=== PATIENT | female | born 1955 | race African-American/Black ===

== ENCOUNTER 2021-10-07 08:07 | Day surgery (SDC) | payer OTHER ==
[2021-10-06 11:40] LABS: Absolute Lymphocytes (CBC) 2.3 K/uL (0.7-4.9); Hematocrit 35.6 % (36.0-45.0); Lymphocytes % 42.6 % (15.3-44.8)
--- NOTE | 2021-10-06 11:44 | RAD REPORT ---
EXAM DESCRIPTION: RAD - Chest Pa And Lat (2 Views) - 10/06/2021 11:15 am CLINICAL HISTORY: Pre Op, pending right breast surgery COMPARISON: April 2018 TECHNIQUE: Frontal and lateral views of the chest were obtained. FINDINGS: The lungs are clear. Interstitial pattern matches comparison. No mass or lymphadenopathy at either hilar region. Heart size is normal and central vasculature is within normal limits. No ple ural effusion or pneumothorax seen. No acute bony finding noted. No aortic abnormality. IMPRESSION: No acute cardiopulmonary process. No significant change from comparison study.
[2021-10-06 11:52] LABS: Potassium 4.2 mmol/L (3.5-5.1)
[2021-10-06 16:37] LABS: Anisocytosis 1+; Blood Morphology Comment NOTED (NOT SEEN); Platelet Estimate ADEQ; White Blood Cell Scan OK (OK)
[2021-10-07] MEDS ORDERED: BUPIVACAINE 0.5% PF 10 ML VIAL ONE (08:18)
[2021-10-07] MEDS ORDERED: NA CHLORIDE 0.9% 1,000 ML ONE (08:33)
[2021-10-07] MEDS ORDERED: CEFAZOLIN/NS 1gm 1 GM/50 ML BAG ONE (08:33)
[2021-10-07] MEDS ORDERED: FENTANYL CITR 100 MCG/2 ML ONE (09:23)
[2021-10-07] MEDS ORDERED: ONDANSETRON 4 MG/2 ML VIAL ONE (09:23)
[2021-10-07] MEDS ORDERED: MIDAZOLAM HCL 2 MG/2 ML INJ ONE (09:23)
[2021-10-07] MEDS ORDERED: propofoL 200 MG/20 ML VIAL IV ONE (09:23)
[2021-10-07] MEDS ORDERED: LIDOCAINE 2% MPF 5 ML VIAL ONE (09:23)
[2021-10-07] MEDS ORDERED: LIDOCAINE 1% MPF 30 ML VIAL ONE (09:52)
[2021-10-07] MEDS ORDERED: Mastisol Adhesive Liq ONE (09:52)
[2021-10-07] MEDS ORDERED: CODEINE 30MG/APAP 300MG TAB ONE (10:31)
[2021-10-07 11:04] VITALS: BP 115/62; TEMP 97.9; O2SAT 100
--- NOTE | 2021-10-07 19:20 | OP ---
Date of Procedure: 10/07/2021 Surgeon: Lauri Gamez MD Chili Maker: Shai Sanabria, Photograph Tinter Certified. Preoperative Diagnosis: Right breast mass. Postoperative Diagnosis: Right breast mass. Procedure: Wide excision of right breast mass 6 x 3 cm. Layered closure. Estimated Blood Loss: Minimal. Specimen: Right breast mass. Findings: Likely sebaceous cyst. Anesthesia: MAC. Complications: None. Disposition: Patient in stable condition, taken to recovery room in good general condition. Description Of Operative Note: Patient was brought to the OR and placed in supine position. MAC ane sthesia began. Patient was prepped and draped in the usual sterile fashion. Lidocaine 1% infiltrate d locally. 15-blade was used to make a 6 x 3 cm incision to excise this large sebaceous cyst on the upper outer quadrant of the right breast along with skin lines, subcutaneous tissue divided entire ma ss including the sac, excised, sent to Pathology. Wound irrigated. Bleeding controlled with cautery . Flaps created, and 2-0 chromic used to approximate subcutaneous tissue and close the skin. Steril e dressing applied. Patient awakened and taken to Recovery in good general condition. Discharge Note: The patient will go to Day Surgery and home when stable. Disposition: Home. Condition: Stable. Discharge Instructions: Resume home medications and diet. Activity as tolerated. No heavy lifting. Remove outer dressing in 2 days. Shower. Dry gauze to wound daily. Tylenol No. 3 one tablet p.o. q.4 p.r.n. pain, and Cipro 500 mg p.o. q.12. Follow up in my office in a week. Call for jose j PRESCOTT/TATY Voice ID: [id number] Report ID: [id number]
== END 2021-10-07 10:54 | disposition home or self-care (01) ==
LOC: OR 08:07
PROVIDERS: ATTEND Surgery
PROC: 0HBT0ZZ Excision of Right Breast, Open Approach (ICD-10-PCS; principal; 2021-10-07 09:30)
DX: L72.0 Epidermal cyst (principal); Z20.822 Contact with and (suspected) exposure to COVID-19
CPT/HCPCS: 93005; 85025; 80048; 36415; 82947; 88304; 71046; 19120; U0003; J2704; J2250; J3010; J0690; J7030; J2405; 88305